=== PATIENT | male | born 1965 | race Caucasian/White ===

== ENCOUNTER 2016-11-16 18:04 | Emergency (ER) | payer BC ==
[2016-11-16 18:20] VITALS: PULSE 97; RESP 18; O2SAT 94
[2016-11-16 18:31] VITALS: BP 152/100; TEMP 98.1
--- NOTE | 2016-11-16 18:43 | UCPHY ---
H & P Patient Type: New HPI/ROS: HPI Needs sleeping medication. 51-year-old male by private vehicle. He reports that he just returned from [place] where he was dealing with family and has been under stress because of difficult family circumstances recently. He reports that he has not been able to sleep for the last several nights. He is asking for a limited prescription of sleeping medication. He has no other complaints. He is not suicidal. ROS: Constitutional: No fever, no chills. No weakness. ENT: No sore throat. No nasal congestion or rhinorrhea. Respiratory: No cough. No shortness of breath. Cardiac: No chest pain, no palpitations. Gastrointestinal: No abdominal pain, no vomiting, no diarrhea. Musculoskeletal: No back pain. No neck pain. No myalgias or arthralgias. Neurological: No headache. No focal weakness or altered sensation. Past medical history: depression, hyperlipidemia. Social history: Nonsmoker. Physical Exam: General Appearance: Alert, no distress. This patient is responding to questions appropriately and in full sentences. This patient appears well- hydrated and well-nourished. Eyes: Pupils equal and round no pallor or injection. No lid edema, erythema or injection. Neurological: Motor sensory function is grossly intact. Cranial nerves are normal. Gait is normal. Skin: Warm and dry, no rashes. Extremities are symmetrical. All joints range without pain or impingement. Psychiatric: No agitation. No depression. Database: EKG: Imaging: Procedures: Emergency department course: After my evaluation, I agreed to give him a take-home pack of Ativan, 1 mg tablets to help him sleep at night. He was instructed to follow up with his primary care physician for ongoing management of his sleeping problems and healthcare needs. He is in agreement with this plan. Return to emergency department/ urgent care precautions reviewed with him. All of his questions were answered. He was discharged in good condition. Differential Diagnosis: The differential diagnosis on this patient includes but is not limited to insomnia. Severe major depression, suicidal ideation unlikely. This represents a partial list of diagnoses considered. These considerations are based on history, physical exam, past history and reassessment. Smoking Status: Former smoker Constitutional: Initial Vital Signs Temperature (C) 36.3 C 11/16/16 18:15 Heart Rate 97 11/16/16 18:15 Respiratory Rate 18 11/16/16 18:15 Blood Pressure 161/104 H 11/16/16 18:15 O2 Sat (%) 94 11/16/16 18:15 O2 Delivery Mode Room Air Allergies/Adverse Reactions: No Known Allergies Allergy (Unverified 11/16/16 18:13) Home Medications: Medication Instructions Recorded AMITRIPTYLINE HCL 11/16/16 MIRTAZAPINE 11/16/16 OLANZapine 11/16/16 Propanolol 11/16/16 SIMVASTATIN 11/16/16 MDM/Departure - Depart Disposition: Home, Routine, Self-Care Clinical Impression: Insomnia Condition: Good Instructions: Insomnia (ED) Additional Instructions: Read and follow provided instructions. Follow-up with your primary care physician for ongoing management of insomnia inner other healthcare needs. Ativan dosin, 1 mg tablet at night to help you sleep. Return to the emergency department for worsening symptoms or other serious concerns. Referrals: NONE *PRIMARY CARE P,. [Primary Care Provider] - As per Instructions - PQRS PQRS Measurement: Not applicable.
[2016-11-16] MEDS ORDERED: LORAZEPAM 1 MG PREPACK#4 BTL TAKEHOME ONE (18:45)
== END 2016-11-16 18:57 | disposition home or self-care (01) ==
LOC: CED 18:04
DX: G47.00 Insomnia, unspecified (principal)
CPT/HCPCS: G0463-PO

== ENCOUNTER 2018-08-06 15:19 | Emergency (ER) | payer BC ==
--- NOTE | 2018-08-06 15:41 | EDPHY ---
H & P Stated Complaint: Upper back/L arm pain since this am;worse w/movement;+recent long travel Time Seen by Provider: 08/06/18 15:29 - Personal History Current Tetanus Diphtheria and Acellular Pertussis (TDAP): Yes - Medical/Surgical History Hx Asthma: No Hx Chronic Respiratory Disease: No Hx Diabetes: No Hx Cardiac Disease: No Hx Renal Disease: No Hx Cirrhosis: No Hx Alcoholism: No Hx HIV/AIDS: No Hx Splenectomy or Spleen Trauma: No Other PMH: depression - Social History Smoking Status: Former smoker Constitutional: Initial Vital Signs Temperature (C) 36.6 C 08/06/18 15:21 Heart Rate 88 08/06/18 15:21 Respiratory Rate 16 08/06/18 15:21 Blood Pressure 130/89 H 08/06/18 15:21 O2 Sat (%) 93 08/06/18 15:21 O2 Delivery Mode Room Air Allergies/Adverse Reactions: No Known Allergies Allergy (Unverified 11/16/16 18:13) Home Medications: Medication Instructions Recorded Webster Carbonate [Webster 300 mg PO 08/06/18 Carbonate Cap 300 mg (*)] Temazepam [Restoril] 30 mg PO 08/06/18 lamOTRIGine [Lamotrigine] 100 mg PO BID 08/06/18 Medical Decision Making - Diagnostics Imaging Results: Imaging Impressions Chest X-Ray 08/06/18 15:36 Impression: Left lung nodule. CT chest is recommended for further evaluation. Findings discussed with Galen Schaefer MD 08/06/2018 at 16:01. Imaging: Discussed imaging studies w/ side door man Radiologist, I viewed and interpreted images myself ED Course/Re-evaluation: CHIEF COMPLAINT: Chest discomfort, shoulder pain. HISTORY OF PRESENT ILLNESS: This patient is a 53 year old male complaining of chest discomfort, left shoulder pain, and nausea. He went jogging yesterday for the first time in quite a while. He felt well following, but woke this morning with left shoulder discomfort. If he moves, the pain radiates from his left scapula around his shoulder and across chest. This can also be exacerbated by deep inspiration. The discomfort occasionally also radiates to arm with associated paresthesias. He currently has no pain at rest. He cannot identify any other provocative or alleviating factors beyond chest wall movement. He denies diaphoresis, chest pain, shortness of breath, nausea, vomiting, or lightheadedness. He denies history of hypertension, hyperlipidemia, diabetes. No personal or family history of clotting disorders. He denies any calf pain or swelling, no recent prolonged travel. He denies any recent trauma. REVIEW OF SYSTEMS: A comprehensive 10 system review of systems is otherwise negative aside from elements mentioned in the history of present illness and medical decision making. PHYSICAL EXAM: HR, BP, O2 Sat, RR. Temp noted General Appearance: Alert, well hydrated, appropriate, and non-toxic appearing. Head: Atraumatic without scalp tenderness or obvious injury Eyes: Pupils equal, round, reactive to light and accommodation, EOMI, no trauma , no injection. Ears: Clear bilaterally, no perforation, normal landmarks Nose: Atraumatic, no rhinorrhea, clear. Throat: There is no erythema or exudates, no lesions, normal tonsils, mucus membranes moist. Neck: Supple, nontender, no lymphadenopathy. Respiratory: No retractions, no distress, no wheezes, and no accessory muscle use. Lungs are clear to auscultation bilaterally. Cardiovascular: Regular rate and rhythm, no murmurs, rubs, or gallops. Bilateral carotid, radial, dorsalis pedis, and posterior tibial pulses intact. Good capillary refill all extremities. Gastrointestinal: Abdomen is soft, nontender, non-distended, no masses, no rebound, no guarding, no peritoneal signs. Musculoskeletal: Reproducible pain with ROM, particularly when patient leans down and to the right. Tenderness over left levator scapulae muscle. Otherwise normal active ROM of all extremities, atraumatic. Neurological: Alert, appropriate, and interactive. The patient has normal DTRs and non-focal cranial nerves, motor, sensory, and cerebellar exam. Skin: No rashes, good turgor, no nodules on palpation. Past medical history: Depression. Past surgical history: Cholecystectomy. Family history: Noncontributory. Social history: Does not abuse tobacco, drugs, or alcohol. DIAGNOSTICS/PROCEDURES/CRITICAL CARE TIME: The 12 lead EKG was interpreted by myself. Nonspecific repolarization abnormalities in V1/V2. See hard copy and/or "tracemaster" electronic copy for interpretation. DIFFERENTIAL DIAGNOSIS: The differential diagnosis for the patient's chest pain included but was not limited to myocardial ischemia, pulmonary embolus, chest wall pain, pleural inflammation, and pulmonary infectious causes. MEDICAL DECISION MAKING: This patient is a 53 year old male complaining of left shoulder pain and chest discomfort. His pain is reproducible on exam. Tender over levator scapula muscle. Given the patient's history and radiation of pain, plan for cardiac workup to rule out acute cardiac processes. Plan for EKG, chest x-ray, labs including CBC, chemistries, troponin, d-dimer. 16:[address] Salvador, radiologist. Incidental left pulmonary nodule will require outpatient followup CT. Labs largely unremarkable. Troponin 0.00. Patient's HEART score is 2 based on non-specific repolarization abnormalities in leads V1/V2 and his age. Patient has no cardiac risk factors, troponin zero. He may be safely treated in the outpatient setting. As his pain has been ongoing for 10 hours, repeat troponin is not warranted at this time. He will be referred to cardiology for followup and a referral order has been completed through the ED cardiology referral program. 16:15 Reassessed patient. Discussed imaging results. Patient is aware of the nodule and states it has been stable over several years. He agrees to follow up with his primary care provider regarding this. Discussed additional findings including EKG, laboratory results. He is reassured that there is no evidence of acute cardiac events at this time. D-dimer is still pending at this time. 17:30 Informed by laboratory two hours after initial draw that a new sample will be required for d-dimer. Test reported pending prior to this despite multiple calls from the ED to lab. 18:05 D-dimer 0.28 Plan to discharge home in good condition as above. - Data Points Laboratory Results: Laboratory Results 08/06/18 15:30 08/06/18 15:30 08/06/18 08/06/18 08/06/18 17:45 15:34 15:30 WBC RBC Hgb Hct MCV MCH MCHC RDW Plt Count MPV Neut % (Auto) Lymph % (Auto) Pierce % (Auto) Eos % (Auto) Baso % (Auto) Nucleat RBC Rel Count Absolute Neuts (auto) Absolute Lymphs (auto) Absolute Monos (auto) Absolute Eos (auto) Absolute Basos (auto) Absolute Nucleated RBC Immature Gran % Immature Gran # D-Dimer 0.28 ug/mLFEU ug/mLFEU (0.00-0.50) Sodium 140 mEq/L mEq/L (135-145) Potassium 3.9 mEq/L mEq/L (3.3-5.0) Chloride 101 mEq/L mEq/L (97-110) Carbon Dioxide 27 mEq/l mEq/l (22-31) Anion Gap 12 mEq/L mEq/L (8-16) BUN 10 mg/dL mg/dL (7-23) Creatinine 0.8 mg/dL mg/dL (0.7-1.3) Estimated GFR > 60 Glucose 114 mg/dL H mg/dL (70-100) Calcium 9.9 mg/dL mg/dL (8.5-10.4) Total Bilirubin 1.5 mg/dL H mg/dL (0.1-1.4) Conjugated Bilirubin 0.1 mg/dL mg/dL (0.0-0.5) Unconjugated Bilirubin 1.4 mg/dL H mg/dL (0.0-1.1) AST 23 IU/L IU/L (17-59) ALT 40 IU/L IU/L (21-72) Alkaline Phosphatase 56 IU/L IU/L (38-126) POC Troponin I 0.00 ng/mL ng/mL (0.00-0.08) NT-Pro-B Natriuret Pep 26 pg/mL pg/mL (0-125) Total Protein 7.7 g/dL g/dL (6.3-8.2) Albumin 5.0 g/dL g/dL (3.5-5.0) Lipase 50 IU/L IU/L (23-300) 08/06/18 08/06/18 15:30 15:30 WBC 8.90 10^3/uL 10^3/uL (3.80-9.50) RBC 5.19 10^6/uL 10^6/uL (4.40-6.38) Hgb 15.5 g/dL g/dL (13.7-17.5) Hct 45.1 % % (40.0-51.0) MCV 86.9 fL fL (81.5-99.8) MCH 29.9 pg pg (27.9-34.1) MCHC 34.4 g/dL g/dL (32.4-36.7) RDW 13.2 % % (11.5-15.2) Plt Count 245 10^3/uL 10^3/uL (150-400) MPV 9.5 fL fL (8.7-11.7) Neut % (Auto) 79.5 % H % (39.3-74.2) Lymph % (Auto) 16.1 % % (15.0-45.0) Pierce % (Auto) 3.7 % L % (4.5-13.0) Eos % (Auto) 0.2 % L % (0.6-7.6) Baso % (Auto) 0.3 % % (0.3-1.7) Nucleat RBC Rel Count 0.0 % % (0.0-0.2) Absolute Neuts (auto) 7.07 10^3/uL H 10^3/uL (1.70-6.50) Absolute Lymphs (auto) 1.43 10^3/uL 10^3/uL (1.00-3.00) Absolute Monos (auto) 0.33 10^3/uL 10^3/uL (0.30-0.80) Absolute Eos (auto) 0.02 10^3/uL L 10^3/uL (0.03-0.40) Absolute Basos (auto) 0.03 10^3/uL 10^3/uL (0.02-0.10) Absolute Nucleated RBC 0.00 10^3/uL 10^3/uL (0-0.01) Immature Gran % 0.2 % % (0.0-1.1) Immature Gran # 0.02 10^3/uL 10^3/uL (0.00-0.10) D-Dimer REJ Sodium Potassium Chloride Carbon Dioxide Anion Gap BUN Creatinine Estimated GFR Glucose Calcium Total Bilirubin Conjugated Bilirubin Unconjugated Bilirubin AST ALT Alkaline Phosphatase POC Troponin I NT-Pro-B Natriuret Pep Total Protein Albumin Lipase Medications Given: Discontinued Medications Aspirin (Aspirin) 324 mg PO EDNOW ONE Stop: 08/06/18 16:02 Last Admin: 08/06/18 16:03 Dose: 324 mg Point of Care Test Results: Chemistry 08/06/18 15:34 POC Troponin I 0.00 ng/mL ng/mL (0.00-0.08) Departure - Departure Clinical Impression: Chest wall pain Strain of left levator scapulae muscle Qualifiers: Encounter type: initial encounter Qualified Code(s): S46.812A - Strain of other muscles, fascia and tendons at shoulder and upper arm level, left arm, initial encounter Condition: Good Instructions: Chest Wall Pain (ED) Additional Instructions: 1. Follow up with your primary care provider. 2. We have referred you to a local marketing data specialist for further evaluation as we discussed. The cardiology office should contact you within 48 hours. If you do not hear from them, please call for an appointment. 3. Take Tylenol or ibuprofen as directed below as needed for pain relief. 4. Return to the emergency department for fever, chest pain, shortness of breath , or other worsening of condition. Adult Pain & Fever Control: We recommend Acetaminophen (Tylenol) and Ibuprofen (Motrin,Advil) for pain and fever control. When fever is high or pain severe, both drugs can be used at the same time, but at different intervals. Please note the time differences. Your dose is: Acetaminophen 650mg every 4 to 6 hours Ibuprofen 600mg every 6-8 hours with food Note: do not take Acetaminophen with Hydrocodone (Vicodin, Lortab) or Oxycodone (Percocet). These medications also contain Acetaminophen. No more than 3000mg of Acetaminophen should be taken in 24 hours (for an adult). Referrals: Amelia Cho MD [Primary Care Provider] - As per Instructions Troy Zarco MD [Medical Doctor] - As per Instructions Report Scribed for: Galen Schaefer Report Scribed by: Dorie Mendez Date of Report: 08/06/18 Time of Report: 15:41
[2018-08-06 15:46] LABS: PLATELET COUNT 245 10^3/uL (150-400)
[2018-08-06] MEDS ORDERED: ASPIRIN 81 MG CHEWABLE TAB PO ONE (16:01)
[2018-08-06] MEDS ORDERED: ASPIRIN 81 MG CHEWABLE TAB ONE (16:01)
[2018-08-06 18:00] VITALS: BP 143/92
--- NOTE | 2018-08-06 21:58 | CPEKG ---
Test Reason : OPEN Blood Pressure : / mmHG Vent. Rate : 086 BPM Atrial Rate : 087 BPM P-R Int : 146 ms QRS Dur : 091 ms QT Int : 359 ms P-R-T Axes : 080 061 025 degrees QTc Int : 430 ms Sinus rhythm Minimal ST elevation, anterior leads Confirmed by Galen Schaefer ([id number]) on 08/06/2018 9:58:22 PM Referred By: Confirmed By:Galen Schaefer
== END 2018-08-06 18:16 | disposition home or self-care (01) ==
DX: R07.89 Other chest pain (principal); R91.1 Solitary pulmonary nodule; Z90.6 Acquired absence of other parts of urinary tract; Z87.891 Personal history of nicotine dependence
CPT/HCPCS: 84484-PO